=== PATIENT | male | born 1960 | race African-American/Black ===

== ENCOUNTER 2016-07-07 07:42 | Emergency (ER) ==
[2016-07-07 07:46] VITALS: BP 166/110
--- NOTE | 2016-07-07 08:06 | PROVIDER DOCUMENTATION ---
HPI-General Adult - General Chief Complaint: Toothache Stated Complaint: TOOTHACHE Time Seen by Provider: 07/07/16 07:44 Source: patient, family Allergies/Adverse Reactions: Patient Allergies Allergy/AdvReac Type Severity Reaction Status Date / Time clonidine Allergy Mild ITCHING Verified 08/11/14 09:58 Home Medications: Amlodipine [Norvasc] 10 mg PO DAILY 08/11/14 Metoprolol Succinate E.r. [Toprol Xl] 50 mg PO BID 08/11/14 - History of Present Illness -Gen Adult Nature of Presenting Problems: R bottom toothache for weeks. Wants abx prescription. Had an appoint with a dentist in one week. Denies F/C/N/V/TORRES/DMII. Location of Pain/Injury: reports: mouth Pain Radiation: reports: no radiation Quality of Pain: reports: aching Severity: reports: moderate Onset/Duration: reports: other (see above) Timing: reports: still present Context/Activities at Onset: reports: none Modifying Factors: improves with: nothing Associated Symptoms: reports: denies symptoms. denies: cough, fatigue, loss of appetite, muscle aches, nausea, syncope, vomiting Similar Symptoms Previously?: Yes Recently seen or treated by another doctor?: Yes Review of Systems - Adult - REVIEW OF SYSTEMS - ADULT Constitutional: reports: no symptoms reported. denies: fever, fatique Eyes: reports: no symptoms reported Ears, Nose, Mouth & Throat: reports: see HPI, mouth/dental pain. denies: hoarseness, throat swelling Cardiovascular: reports: no symptoms reported Respiratory: reports: no symptoms reported Gastrointestinal: reports: no symptoms reported All Other Systems: Reviewed and Negative Past History - Adult - PAST MEDICAL HISTORY-ADULT Major Childhood Illnesses: reports: denies history Cardiovascular: reports: HTN Respiratory: reports: denies history Gastrointestinal: reports: denies history Obstetrical/Gynecological: reports: denies history Genitourinary: reports: denies history Musculoskeletal: reports: denies history Neurological: reports: denies history Endocrine/Immune: reports: denies history Other Conditions: reports: denies history Physical Exam-General - PHYSICAL EXAM-ADULT Initial Vital Signs Reviewed: Yes - CONSTITUTIONAL General Appearance: appears well, alert, no apparent distress - HEAD, EARS, NOSE, MOUTH & THROAT HENMT: normocephalic/atraumatic, pharynx normal, dental decay (R bottom molar, no abscess) - NECK Neck: non-tender, full range of motion - RESPIRATORY Respiratory: chest non-tender, lungs clear, normal breath sounds, no pleuratic chest pain, no respiratory distress, no accessory muscle use - CARDIOVASCULAR Cardiovascular: normal peripheral pulses, regular rate, rhythm, no edema - GASTROINTESTINAL (ABDOMEN) Abdominal Exam: normal bowel sounds, non tender, soft, no organomegaly - MUSCULOSKELETAL Back Exam: normal inspection, no CVA tenderness, no vertebral tenderness Extremity: normal range of motion, non-tender, normal gait - SKIN Integumentary: normal color, normal turgor Departure - Departure Time of Disposition Order: 08:05 DIAGNOSIS: Toothache Disposition: HOME 01 Certified Medical Emergency: Emergent Condition: Stable Additional Instructions: Follow up with your dentist for further management. Prescriptions: Clindamycin [Cleocin] 300 mg PO Q6HR #40 capsule Referrals: Aroldo Boland MD [Primary Care Provider] -
== END 2016-07-07 08:21 | disposition home or self-care (01) ==
LOC: ED 07:42
DX: K08.89 Other specified disorders of teeth and supporting structures (principal); K02.9 Dental caries, unspecified; I10 Essential (primary) hypertension; Z79.899 Other long term (current) drug therapy
CPT/HCPCS: 99282